=== PATIENT | female | born 2000 | race Caucasian/White ===

== ENCOUNTER 2021-12-08 14:02 | Emergency (ER) | payer OTHER ==
[2021-12-08] MEDS ORDERED: ZOFRAN 4 MG TAB4 MG PO (14:30)
== END 2021-12-08 14:46 | disposition home or self-care (01) ==
LOC: ER1 14:02
DX: R10.9 Unspecified abdominal pain (principal); R11.0 Nausea; F17.200 Nicotine dependence, unspecified, uncomplicated; F17.290 Nicotine dependence, other tobacco product, uncomplicated
CPT/HCPCS: 99283

== ENCOUNTER 2021-12-31 20:10 | Emergency (ER) | payer OTHER ==
[~2021-12-31 20:10] MED LIST: ZOFRAN 4 MG TAB4 MG PO
[2021-12-31 21:19] LABS: HEMOGLOBIN 12.8 gm/dl (12.3-15.3); RED BLOOD COUNT 4.45 M/UL (4.00-5.10); WHITE BLOOD COUNT 8.3 K/UL (4.5-11.0)
[2021-12-31 21:37] LABS: BUN/CREATININE RATIO 9 (0-10)
== END 2021-12-31 22:22 | disposition home or self-care (01) ==
LOC: ER1 20:10
PROVIDERS: Physician Assistant
DX: O99.891 Other specified diseases and conditions complicating pregnancy (principal); R10.9 Unspecified abdominal pain; Z3A.01 Less than 8 weeks gestation of pregnancy
CPT/HCPCS: 80053; 81001; 83690; 84702; 84703; 85025; 86850; 86900; 86901; 87086; 99284

== ENCOUNTER 2022-01-21 21:44 | Emergency (ER) | payer OTHER ==
[2022-01-22 02:06] LABS: RED BLOOD COUNT 4.51 M/UL (4.00-5.10); WHITE BLOOD COUNT 10.6 K/UL (4.5-11.0)
[2022-01-22 02:33] LABS: BUN/CREATININE RATIO 9 (0-10)
[2022-01-23 21:07] LABS: CHLAMYDIA TRACHOMATIS, NAA Negative (Negative); NEISSERIA GONORRHOEAE, NAA Negative (Negative)
== END 2022-01-22 04:11 | disposition home or self-care (01) ==
LOC: ER1 21:44
PROVIDERS: Emergency Medicine; Family Medicine
DX: O99.891 Other specified diseases and conditions complicating pregnancy (principal); R10.31 Right lower quadrant pain; Z3A.01 Less than 8 weeks gestation of pregnancy
CPT/HCPCS: 80053; 81001; 84702; 85025; 87086; 99284

== ENCOUNTER 2022-03-24 22:57 | Emergency (ER) | payer OTHER | END 2022-03-25 00:14 | disposition home or self-care (01) | LOC: ER1 22:57 | DX: O99.891 Other specified diseases and conditions complicating pregnancy (principal); R10.9 Unspecified abdominal pain; Z3A.15 15 weeks gestation of pregnancy; V49.50XA Passenger injured in collision with unspecified motor vehicles in traffic accident, initial encounter; Y92.410 Unspecified street and highway as the place of occurrence of the external cause | CPT/HCPCS: 99283 ==

== ENCOUNTER 2022-05-13 11:57 | Outpatient (CLI) | payer OTHER | END 2022-05-13 12:50 | disposition home or self-care (01) | LOC: GENOP 11:57 | DX: O36.8120 Decreased fetal movements, second trimester, not applicable or unspecified (principal); O47.02 False labor before 37 completed weeks of gestation, second trimester; Z3A.20 20 weeks gestation of pregnancy | CPT/HCPCS: G0463 ==

== ENCOUNTER 2022-07-02 23:03 | Outpatient (CLI) | payer OTHER | END 2022-07-03 00:10 | disposition home or self-care (01) | LOC: GENOP 23:03 | DX: O99.891 Other specified diseases and conditions complicating pregnancy (principal); R10.2 Pelvic and perineal pain; O36.8120 Decreased fetal movements, second trimester, not applicable or unspecified; Z3A.22 22 weeks gestation of pregnancy | CPT/HCPCS: 81001; G0463 ==